=== PATIENT | male | born 1960 ===

== ENCOUNTER 2022-03-01 15:01 | Emergency (ER) | payer SELFPAY ==
[2022-03-01 15:11] VITALS: BP 124/82
[2022-03-01] MEDS ORDERED: IBU600T PO (16:27)
== END 2022-03-01 16:20 | disposition home or self-care (01) ==
LOC: ER 15:01
DX: S02.601A Fracture of unspecified part of body of right mandible, initial encounter for closed fracture (principal); M79.10 Myalgia, unspecified site; F17.210 Nicotine dependence, cigarettes, uncomplicated; Y04.2XXA Assault by strike against or bumped into by another person, initial encounter; Y93.89 Activity, other specified; Y92.89 Other specified places as the place of occurrence of the external cause; Y99.8 Other external cause status
CPT/HCPCS: 70486